=== PATIENT | female | born 1935 | race Caucasian/White ===

== ENCOUNTER 2017-01-11 09:12 | Emergency (ER) | payer OTHER, BC ==
--- NOTE | 2017-01-11 09:45 | EDPHY ---
H & P Time Seen by Provider: 01/11/17 09:21 HPI/ROS: Chief Complaint: Lethargy HPI: 81-year-old woman presenting this morning complaining of feeling "like a rag doll "with increasing lethargy noted this morning. She has had similar episodes in the past and has been diagnosed with urinary tract infections. Denies any urinary urgency or frequency. No fevers or chills. No chest pain or shortness of breath. She has also felt this way when she has been dehydrated in the past but she has been drinking plenty of fluids. No lightheadedness or fainting. Has otherwise been in her usual state of health. Does have a history of dementia and is cared for by her . ROS: 10 point Review of Systems is negative except as noted in the HPI. PMH: Alzheimer's dementia, pacemaker Social History: No smoking, no alcohol, no recreational drug use Family History: non-contributory Physical Exam: Gen: Awake, Alert, No Distress HEENT: Nose: no rhinorrhea Eyes: PERRLA, EOMI Mouth: Moist mucosa Neck: Supple, no JVD Chest: nontender, lungs clear to auscultation Heart: S1, S2 normal, no murmur Abd: Soft, non-tender, no guarding Back: no CVA tenderness, no midline tenderness Ext: no edema, non-tender Skin: no rash Neuro: CN II-XII intact, Sensation grossly intact, Strength 5/5 in bilateral upper and lower extremities - Personal History Tetanus Vaccine Date: unsure - Medical/Surgical History Hx Asthma: No Hx Chronic Respiratory Disease: No Hx Diabetes: No Hx Cardiac Disease: Yes Hx Renal Disease: No Hx Cirrhosis: No Hx Alcoholism: No Hx HIV/AIDS: No Hx Splenectomy or Spleen Trauma: No Other PMH: med hx-AFIB, pacemaker, 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 surg-joe knee replacements,pacemaker,tonsilectomy and appy - Social History Smoking Status: Former smoker Constitutional: Initial Vital Signs Temperature (C) 36.6 C 01/11/17 09:40 Heart Rate 75 01/11/17 09:40 Respiratory Rate 18 01/11/17 09:40 Blood Pressure 122/62 H 01/11/17 09:40 O2 Sat (%) 97 01/11/17 09:40 O2 Delivery Mode Room Air Allergies/Adverse Reactions: No Known Allergies Allergy (Verified 11/01/16 08:08) Home Medications: Medication Instructions Recorded Crestor 11/03/14 Pradaxa 11/03/14 Metoprolol Succinate 12/21/14 Levothyroxine 09/24/15 Namenda 10 mg 10/20/15 Nitrofurantoin Monohyd/M-Cryst 100 mg PO BID #10 capsule 01/11/17 [Macrobid 100 mg Capsule] Medical Decision Making ED Course/Re-evaluation: UA consistent with UTI. Will start the patient on Macrobid. She will follow up with her primary care physician in 4-5 days for recheck. - Data Points Laboratory Results: 01/11/17 10:01 Urine Color YELLOW Urine Appearance CLEAR Urine pH 5.5 (5.0-7.5) Ur Specific [place] 1.010 (1.002-1.030) Urine Protein NEGATIVE (NEGATIVE) Urine Ketones NEGATIVE (NEGATIVE) Urine Blood 2+ H (NEGATIVE) Urine Nitrate NEGATIVE (NEGATIVE) Urine Bilirubin NEGATIVE (NEGATIVE) Urine Urobilinogen 0.2 EU EU (0.2-1.0) Ur Leukocyte Esterase 1+ H (NEGATIVE) Urine RBC 10-15 /hpf H /hpf (0-3) Urine WBC 10-15 /hpf H /hpf (0-3) Ur Epithelial Cells TRACE /lpf /lpf (NONE-1+) Urine Bacteria TRACE /hpf H /hpf (NONE SEEN) Urine Mucus TRACE /lpf /lpf (NONE-1+) Urine Glucose NEGATIVE (NEGATIVE) Departure - Departure Disposition: Home, Routine, Self-Care Clinical Impression: Urinary tract infection Condition: Good Instructions: Urinary Tract Infection in Women (ED) Additional Instructions: Please take your full course of antibiotics. Follow up with her doctor in 4-5 days for recheck. Return to the emergency department for increasing confusion, pain, fevers, chills, or any other concerns. Referrals: Clari Wise MD [Primary Care Provider] - As per Instructions Prescriptions: Nitrofurantoin Monohyd/M-Cryst [Macrobid 100 mg Capsule] 100 mg PO BID #10 capsule
[2017-01-11 10:02] VITALS: RESP 18; TEMP 98
[2017-01-11 10:12] LABS: COLOR YELLOW; LEUKOCYTE ESTERASE,URINE 1+ (NEGATIVE); NITRITE,URINE NEGATIVE (NEGATIVE); PH,URINE 5.5 (5.0-7.5)
[2017-01-11 10:23] LABS: BACTERIA TRACE /hpf (NONE SEEN); MUCUS TRACE /lpf (NONE-1+)
[2017-01-11 10:51] VITALS: O2SAT 96
[2017-01-11 10:52] VITALS: BP 130/63; PULSE 78
== END 2017-01-11 10:52 | disposition home or self-care (01) ==
LOC: CED 09:12
DX: N39.0 Urinary tract infection, site not specified (principal); B96.89 Other specified bacterial agents as the cause of diseases classified elsewhere; G30.9 Alzheimer's disease, unspecified; Z87.891 Personal history of nicotine dependence; Z95.0 Presence of cardiac pacemaker
CPT/HCPCS: 81003-PO; 81015-PO

== ENCOUNTER 2017-01-17 10:28 | Emergency (ER) | payer OTHER, BC ==
[2017-01-17 10:43] VITALS: TEMP 97.9; O2SAT 97
--- NOTE | 2017-01-17 11:02 | EDPHY ---
H & P Stated Complaint: muscles feel weak, finished antibiotic for UTI 2 days ago Time Seen by Provider: 01/17/17 10:36 HPI/ROS: CHIEF COMPLAINT: "Feel like a rag doll " HISTORY OF PRESENT ILLNESS: This is an 81-year-old female with history of dementia who presents with complaints of diffuse weakness which she describes as feeling "like a rag doll ". She was diagnosed with urinary tract infection on January 11, 5 days ago, and completed a course of nitrofurantoin. She had a urinalysis performed at her primary care physician's office 2 days ago which was reportedly normal with the exception of a trace of blood. She has not had fever. She denies flank pain, abdominal pain, dysuria, hematuria, urgency, or frequency. She has not had chest pain or shortness of breath. No recent falls or trauma. REVIEW OF SYSTEMS: A ten point review of systems was performed and is negative with the exception of the items mentioned in the HPI. History review of systems obtained with the help of her , she has dementia. Past medical history: 1. Dementia 2. Atrial fibrillation 3. Pacemaker 4. Hypothyroidism Past surgical history: 1. Pacemaker 2. Bilateral knee replacements Social history: She lives with her at [facility] in independent living. She uses alcohol socially. No tobacco use. 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 General Appearance: Alert. Vital signs reviewed and normal. Eyes: Pupils equal and round, no conjunctival injection, no discharge. Anicteric. ENT, Mouth: Mucous membranes are moist, no oropharyngeal erythema or edema. Torus palatine. Neck: No lymphadenopathy, supple. Respiratory: Lungs are clear to auscultation; no wheezes, rales, or rhonchi. Cardiovascular: Regular rate and rhythm; no murmur, rub, or gallop. Gastrointestinal: Abdomen is soft with very mild suprapubic tenderness, no masses or organomegaly, bowel sounds normal. Skin: Warm and dry, no rashes on exposed skin, normal color. Back: Nontender to palpation over the thoracolumbar spine. No CVAT. Extremities: No lower extremity edema, no calf tenderness or swelling. Neurological: Alert. Moving all four extremities easily and equally. Psychiatric: Normal affect. No agitation. 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 surg-joe knee replacements,pacemaker,tonsilectomy and appy - Social History Smoking Status: Former smoker Constitutional: Initial Vital Signs Temperature (C) 36.6 C 01/17/17 10:41 Heart Rate 67 01/17/17 10:41 Respiratory Rate 18 01/17/17 10:41 Blood Pressure 115/63 01/17/17 10:41 O2 Sat (%) 97 01/17/17 10:41 O2 Delivery Mode Room Air Allergies/Adverse Reactions: No Known Allergies Allergy (Verified 01/17/17 10:41) Home Medications: Medication Instructions Recorded Crestor 11/03/14 Pradaxa 11/03/14 Metoprolol Succinate 12/21/14 Levothyroxine 09/24/15 Namenda 10 mg 10/20/15 Nitrofurantoin Monohyd/M-Cryst 100 mg PO BID #10 capsule 01/11/17 [Macrobid 100 mg Capsule] Cephalexin [Keflex] 500 mg PO BID #10 cap 01/17/17 Medical Decision Making - Diagnostics EKG Interpretation: 12 lead EKG is interpreted in Trace master View by emergency department physician. Paced. ED Course/Re-evaluation: 81-year-old female who was recently completed a course of antibiotics, nitrofurantoin, for urinary tract infection. She presents with diffuse weakness. Reportedly this is how her previous urinary tract infections have started. I do not find evidence of an acute problem on exam. Clean-catch urinalysis is positive for blood and 1+ bacteria. This might represent partially treated urinary tract infection. I discussed this at some length with the patient and her . Following our discussion we have agreed to proceed with further evaluation to eliminate other possible causes for her diffuse weakness. EKG, CBC, chemistries, troponin, and TSH have been ordered. If these are negative/normal she will be treated for UTI with a different antibiotic (Keflex). Urine has been sent for culture. EKG shows a paced rhythm. Troponin is normal. CBC shows slight decrease in hematocrit and thrombocytopenia with platelets of 109,000. She has had low platelet counts in the past, although this is lower than previously documented. Chemistries WNL. TSH pending. I have not found evidence of a life-threatening were serious process that might make her feel diffusely weak. Differential Diagnosis: Weakness including but not limited to myocardial infarction, electrolyte abnormality, endocrine disorder, depression, anxiety, CVA, spinal cord abnormality, and infectious causes. - Data Points Laboratory Results: Laboratory Results 01/17/17 11:45 01/17/17 11:45 01/17/17 01/17/17 01/17/17 11:45 11:45 11:02 WBC 4.48 10^3/uL 10^3/uL (3.80-9.50) RBC 3.56 10^6/uL L 10^6/uL (4.18-5.33) Hgb 12.6 g/dL g/dL (12.6-16.3) Hct 36.5 % L % (38.0-47.0) MCV 102.5 fL H fL (81.5-99.8) MCH 35.4 pg H pg (27.9-34.1) MCHC 34.5 g/dL g/dL (32.4-36.7) RDW 12.5 % % (11.5-15.2) Plt Count 109 10^3/uL L 10^3/uL (150-400) MPV 9.5 fL fL (8.7-11.7) Neut % (Auto) 68.1 % % (39.3-74.2) Lymph % (Auto) 11.8 % L % (15.0-45.0) [place] % (Auto) 11.6 % % (4.5-13.0) Eos % (Auto) 7.4 % % (0.6-7.6) Baso % (Auto) 0.9 % % (0.3-1.7) Nucleat RBC Rel Count 0.0 % % (0.0-0.2) Absolute Neuts (auto) 3.05 10^3/uL 10^3/uL (1.70-6.50) Absolute Lymphs (auto) 0.53 10^3/uL L 10^3/uL (1.00-3.00) Absolute Monos (auto) 0.52 10^3/uL 10^3/uL (0.30-0.80) Absolute Eos (auto) 0.33 10^3/uL 10^3/uL (0.03-0.40) Absolute Basos (auto) 0.04 10^3/uL 10^3/uL (0.02-0.10) Absolute Nucleated RBC 0.00 10^3/uL 10^3/uL (0-0.01) Immature Gran % 0.2 % % (0.0-1.1) Immature Gran # 0.01 10^3/uL 10^3/uL (0.00-0.10) Sodium 136 mEq/L mEq/L (134-144) Potassium 4.1 mEq/L mEq/L (3.5-5.2) Chloride 101 mEq/L mEq/L (97-110) Carbon Dioxide 23 mEq/l mEq/l (22-31) Anion Gap 12 mEq/L mEq/L (8-16) BUN 10 mg/dL mg/dL (7-23) Creatinine 1.0 mg/dL mg/dL (0.6-1.0) Estimated GFR 53 Glucose 102 mg/dL H mg/dL (70-100) Calcium 8.8 mg/dL mg/dL (8.5-10.4) Troponin I < 0.012 ng/mL ng/mL (0.000-0.034) TSH Pending Urine Color YELLOW Urine Appearance CLEAR Urine pH 5.5 (5.0-7.5) Ur Specific [place] <= 1.005 (1.002-1.030) Urine Protein NEGATIVE (NEGATIVE) Urine Ketones NEGATIVE (NEGATIVE) Urine Blood 2+ H (NEGATIVE) Urine Nitrate NEGATIVE (NEGATIVE) Urine Bilirubin NEGATIVE (NEGATIVE) Urine Urobilinogen 0.2 EU EU (0.2-1.0) Ur Leukocyte Esterase NEGATIVE (NEGATIVE) Urine RBC 5-10 /hpf H /hpf (0-3) Urine WBC 0-1 /hpf /hpf (0-3) Ur Epithelial Cells 1+ /lpf /lpf (NONE-1+) Urine Bacteria 1+ /hpf H /hpf (NONE SEEN) Urine Glucose NEGATIVE (NEGATIVE) Departure - Departure Disposition: Home, Routine, Self-Care Clinical Impression: Urinary tract infection Qualifiers: Urinary tract infection type: acute cystitis Hematuria presence: with hematuria Qualified Code(s): N30.01 - Acute cystitis with hematuria Condition: Good Instructions: Urinary Tract Infection in Women (ED) Additional Instructions: I think that there is still some remaining infection of your urine. I am changing you to a different antibiotic. Please follow up with Dr. Wolf within the next 1-2 weeks. If you are worse in any way--fever, back pain, vomiting, abdominal pain, pain with urination--please be re-evaluated. Referrals: Clari Wise MD [Primary Care Provider] - As per Instructions Prescriptions: Cephalexin [Keflex] 500 mg PO BID #10 cap
[2017-01-17 11:08] LABS: COLOR YELLOW; LEUKOCYTE ESTERASE,URINE NEGATIVE (NEGATIVE); NITRITE,URINE NEGATIVE (NEGATIVE); PH,URINE 5.5 (5.0-7.5)
[2017-01-17 11:17] LABS: BACTERIA 1+ /hpf (NONE SEEN); WBC,URINE 0-1 /hpf (0-3)
--- NOTE | 2017-01-17 11:50 | CPEKG ---
Heart Rate: 65 RR Interval: 923 QRSD Interval: 102 QT Interval: 408 QTC Interval: 425 QRS [place]: 50 T Wave [place]: 195 EKG Severity - ABNORMAL ECG - EKG Impression: AFIBAND V-PACED COMPLEXES EKG Impression: NONSPECIFIC REPOL ABNORMALITY, DIFFUSE LEADS Electronically Signed By: Sha Pelletier 21-Jan-2017 16:56:25
[2017-01-17 11:52] LABS: % IMMATURE GRANULYOCYTES 0.2 % (0.0-1.1); ABSOLUTE IMMATURE GRANULOCYTES 0.01 10^3/uL (0.00-0.10); ADD DIFF? NO; ADD MORPH? NO; ADD SCAN? NO; ATYPICAL LYMPHOCYTE FLAG 0 (0-99); FRAGMENT RBC FLAG 0 (0-99); HEMATOCRIT 36.5 % (38.0-47.0); HEMOGLOBIN 12.6 g/dL (12.6-16.3); LEFT SHIFT FLG 0 (0-99); LIPEMIA HEMOLYSIS FLAG 90 (0-99); MEAN CELL HEMOGLOBIN 35.4 pg (27.9-34.1); MEAN CELL HEMOGLOBIN CONCENTR. 34.5 g/dL (32.4-36.7); MEAN CELL VOLUME 102.5 fL (81.5-99.8); MEAN PLATELET VOLUME 9.5 fL (8.7-11.7); PLATELET CLUMPS FLAG 0 (0-99); PLATELET COUNT 109 10^3/uL (150-400); RED BLOOD CELL COUNT 3.56 10^6/uL (4.18-5.33); RED CELL DISTRIBUTION WIDTH 12.5 % (11.5-15.2)
[2017-01-17 12:09] LABS: ANION GAP 12 mEq/L (8-16); CALCIUM 8.8 mg/dL (8.5-10.4); CARBON DIOXIDE 23 mEq/l (22-31); CHLORIDE 101 mEq/L (97-110); GLOMERULAR FILTRATION RATE 53; GLUCOSE 102 mg/dL (70-100); POTASSIUM 4.1 mEq/L (3.5-5.2); SODIUM 136 mEq/L (134-144)
[2017-01-17 12:24] LABS: TROPONIN I < 0.012 ng/mL (0.000-0.034)
[2017-01-17 13:01] VITALS: BP 109/71; PULSE 65; RESP 16
== END 2017-01-17 12:59 | disposition home or self-care (01) ==
LOC: CED 10:28
DX: N30.01 Acute cystitis with hematuria (principal); B96.89 Other specified bacterial agents as the cause of diseases classified elsewhere; Z95.0 Presence of cardiac pacemaker; Z87.891 Personal history of nicotine dependence
CPT/HCPCS: 80048-PO; 81003-PO; 81015-PO; 84443-PO; 84484-PO; 85025-PO

== ENCOUNTER 2017-02-12 07:26 | Emergency (ER) | payer OTHER, BC ==
--- NOTE | 2017-02-12 07:46 | EDPHY ---
H & P Stated Complaint: states some chest tightness with a funny feeling this am Time Seen by Provider: 02/12/17 07:28 HPI/ROS: 81-year-old female with history of dementia presents with her for complaint of he is concerned that she may be dehydrated or have a urinary tract infection because earlier this morning she just did not feel well. No fevers no chills no complaint of pain. Review of systems, limited secondary to patient's mental status with dementia Review of systems General no fever no chills no weakness HEENT no eye pain no eye discharge. No eye redness, no sore throat Respiratory no cough, no shortness of breath Cardiac no chest pain, no peripheral edema GI no abdominal pain, no diarrhea, no constipation, no nausea, no vomiting no flank pain, no hematuria, no dysuria Musculoskeletal no myalgias, no joint pain Heme no easy bruising, no easy bleeding Endo no polyuria, no polydipsia Skin no rashes, no pruritus Neuro no syncope, no dizziness, no headaches Psych is no suicidal ideation, no homicidal ideation Source: Family Exam Limitations: No limitations, Other (Patient with dementia) - Personal History Current Tetanus/Diphtheria Vaccine: Unsure Tetanus Vaccine Date: unsure - Medical/Surgical History Hx Asthma: No Hx Chronic Respiratory Disease: No Hx Diabetes: No Hx Cardiac Disease: Yes Hx Renal Disease: No Hx Cirrhosis: No Hx Alcoholism: No Hx HIV/AIDS: No Hx Splenectomy or Spleen Trauma: No Other PMH: med hx-AFIB, pacemaker, 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 surg-joe knee replacements,pacemaker,tonsilectomy and appy - Family History Significant Family History: No pertinent family hx - Social History Smoking Status: Former smoker Alcohol Use: None Drug Use: None - Physical Exam Exam: 81-year-old female alert, oriented to place, name, no acute distress, no respiratory distress, afebrile Patient does not appear ill thin, petite HEENT atraumatic normocephalic, extraocular muscles intact, anicteric Oropharynx negative for erythema negative exudate, tolerating her own secretions Neck supple no meningismus Lungs clear to auscultation bilaterally Heart regular rate and rhythm without murmur rub or gallop Abdomen nondistended normoactive bowel sounds soft nontender Back no CVA tenderness, no step-offs, no spinal tenderness Extremities no cyanosis clubbing or edema Neuro alert and oriented, no focal deficits Constitutional: Initial Vital Signs Temperature (C) 36.6 C 02/12/17 07:42 Heart Rate 63 02/12/17 07:42 Respiratory Rate 18 02/12/17 07:42 Blood Pressure 121/74 H 02/12/17 07:42 O2 Sat (%) 95 02/12/17 07:42 O2 Delivery Mode Room Air Allergies/Adverse Reactions: No Known Allergies Allergy (Verified 01/17/17 10:41) Home Medications: Medication Instructions Recorded Crestor 11/03/14 Pradaxa 11/03/14 Metoprolol Succinate 12/21/14 Levothyroxine 09/24/15 Namenda 10 mg 10/20/15 Nitrofurantoin Monohyd/M-Cryst 100 mg PO BID #10 capsule 01/11/17 [Macrobid 100 mg Capsule] Cephalexin [Keflex] 500 mg PO BID #10 cap 01/17/17 Cephalexin 500 mg PO BID #10 tablet 02/12/17 Medical Decision Making ED Course/Re-evaluation: Patient seen and evaluated for complaint of "not feeling well ". EKG-no ischemic changes paced Urinalysis-positive RBCs positive WBCs trace bacteria Lab CBC, CMP within normal limits Troponin, TSH within normal limits Patient appears well, was able to eat and drink a small snack. Impression Urinary tract infection Plan Keflex 500 twice daily x7 days Follow-up with PCP Return as needed Differential Diagnosis: Dehydration, urinary tract infection, electrolyte abnormality, hypothyroidism - Data Points Laboratory Results: Laboratory Results 02/12/17 07:58 02/12/17 07:58 02/12/17 02/12/17 02/12/17 07:58 07:58 07:35 WBC 4.39 10^3/uL 10^3/uL (3.80-9.50) RBC 3.59 10^6/uL L 10^6/uL (4.18-5.33) Hgb 12.7 g/dL g/dL (12.6-16.3) Hct 37.0 % L % (38.0-47.0) MCV 103.1 fL H fL (81.5-99.8) MCH 35.4 pg H pg (27.9-34.1) MCHC 34.3 g/dL g/dL (32.4-36.7) RDW 13.1 % % (11.5-15.2) Plt Count 133 10^3/uL L 10^3/uL (150-400) MPV 9.3 fL fL (8.7-11.7) Neut % (Auto) 48.6 % % (39.3-74.2) Lymph % (Auto) 28.2 % % (15.0-45.0) [place] % (Auto) 11.6 % % (4.5-13.0) Eos % (Auto) 10.3 % H % (0.6-7.6) Baso % (Auto) 1.1 % % (0.3-1.7) Nucleat RBC Rel Count 0.0 % % (0.0-0.2) Absolute Neuts (auto) 2.13 10^3/uL 10^3/uL (1.70-6.50) Absolute Lymphs (auto) 1.24 10^3/uL 10^3/uL (1.00-3.00) Absolute Monos (auto) 0.51 10^3/uL 10^3/uL (0.30-0.80) Absolute Eos (auto) 0.45 10^3/uL H 10^3/uL (0.03-0.40) Absolute Basos (auto) 0.05 10^3/uL 10^3/uL (0.02-0.10) Absolute Nucleated RBC 0.00 10^3/uL 10^3/uL (0-0.01) Immature Gran % 0.2 % % (0.0-1.1) Immature Gran # 0.01 10^3/uL 10^3/uL (0.00-0.10) Sodium 140 mEq/L mEq/L (134-144) Potassium 4.4 mEq/L mEq/L (3.5-5.2) Chloride 104 mEq/L mEq/L (97-110) Carbon Dioxide 22 mEq/l mEq/l (22-31) Anion Gap 14 mEq/L mEq/L (8-16) BUN 14 mg/dL mg/dL (7-23) Creatinine 1.1 mg/dL H mg/dL (0.6-1.0) Estimated GFR 47 Glucose 92 mg/dL mg/dL (70-100) Calcium 8.8 mg/dL mg/dL (8.5-10.4) Magnesium 1.9 mg/dL mg/dL (1.6-2.3) Total Bilirubin 1.0 mg/dL mg/dL (0.1-1.4) AST 25 IU/L IU/L (14-46) ALT 27 IU/L IU/L (9-52) Alkaline Phosphatase 48 IU/L IU/L (38-126) Troponin I < 0.012 ng/mL ng/mL (0.000-0.034) Total Protein 6.4 g/dL g/dL (6.3-8.2) Albumin 4.0 g/dL g/dL (3.5-5.0) TSH 3.570 uIU/mL uIU/mL (0.465-4.680) Urine Color YELLOW Urine Appearance CLEAR Urine pH 6.0 (5.0-7.5) Ur Specific [place] 1.010 (1.002-1.030) Urine Protein NEGATIVE (NEGATIVE) Urine Ketones NEGATIVE (NEGATIVE) Urine Blood 2+ H (NEGATIVE) Urine Nitrate NEGATIVE (NEGATIVE) Urine Bilirubin NEGATIVE (NEGATIVE) Urine Urobilinogen 1.0 EU EU (0.2-1.0) Ur Leukocyte Esterase 1+ H (NEGATIVE) Urine RBC 25-50 /hpf H /hpf (0-3) Urine WBC 1-3 /hpf /hpf (0-3) Ur Epithelial Cells 1+ /lpf /lpf (NONE-1+) Ur Renal Epithelial Cell 1+ /hpf H /hpf (NONE SEEN) Urine Bacteria TRACE /hpf H /hpf (NONE SEEN) Hyaline Casts 15-25 /lpf H /lpf (0-1) Urine Mucus TRACE /lpf /lpf (NONE-1+) Urine Glucose NEGATIVE (NEGATIVE) Medications Given: Discontinued Medications Cephalexin (Keflex 500 Mg Prepack#4) 1 btl TAKEHOME EDNOW ONE PRN Reason: Protocol Stop: 02/12/17 08:50 Last Admin: 02/12/17 09:04 Dose: 1 btl Departure - Departure Disposition: Home, Routine, Self-Care Clinical Impression: UTI (urinary tract infection) Condition: Good Instructions: Urinary Tract Infection in Women (ED) Additional Instructions: Follow-up with your primary care physician in the next 5-7 days. Return to emergency for vomiting, high fever, or any other significant concerned. Referrals: Clari Wise MD [Primary Care Provider] - As per Instructions Prescriptions: Cephalexin 500 mg PO BID #10 tablet
[2017-02-12 07:52] LABS: COLOR YELLOW; LEUKOCYTE ESTERASE,URINE 1+ (NEGATIVE); NITRITE,URINE NEGATIVE (NEGATIVE)
[2017-02-12 07:58] VITALS: RESP 18; TEMP 98; O2SAT 95
--- NOTE | 2017-02-12 07:59 | CPEKG ---
Heart Rate: 64 RR Interval: 938 P-R Interval: 148 QRSD Interval: 132 QT Interval: 444 QTC Interval: 458 P [place]: 0 QRS [place]: 42 T Wave [place]: 61 EKG Severity - ABNORMAL ECG - EKG Impression: VENTRICULAR-PACED RHYTHM Electronically Signed By: Sha Pelletier 16-Feb-2017 19:05:28
[2017-02-12 08:00] LABS: HYALINE CASTS 15-25 /lpf (0-1); MUCUS TRACE /lpf (NONE-1+); RENAL EPITHELIAL CELLS 1+ /hpf (NONE SEEN)
[2017-02-12 08:01] LABS: RBC,URINE 25-50 /hpf (0-3)
[2017-02-12 08:02] LABS: BACTERIA TRACE /hpf (NONE SEEN)
[2017-02-12 08:13] LABS: % IMMATURE GRANULYOCYTES 0.2 % (0.0-1.1); ABSOLUTE IMMATURE GRANULOCYTES 0.01 10^3/uL (0.00-0.10); ADD DIFF? NO; ADD MORPH? NO; ADD SCAN? NO; ATYPICAL LYMPHOCYTE FLAG 10 (0-99); FRAGMENT RBC FLAG 0 (0-99); HEMOGLOBIN 12.7 g/dL (12.6-16.3); LEFT SHIFT FLG 0 (0-99); LIPEMIA HEMOLYSIS FLAG 90 (0-99); MEAN CELL HEMOGLOBIN 35.4 pg (27.9-34.1); MEAN CELL HEMOGLOBIN CONCENTR. 34.3 g/dL (32.4-36.7); MEAN CELL VOLUME 103.1 fL (81.5-99.8); MEAN PLATELET VOLUME 9.3 fL (8.7-11.7); PLATELET CLUMPS FLAG 0 (0-99); PLATELET COUNT 133 10^3/uL (150-400); RED BLOOD CELL COUNT 3.59 10^6/uL (4.18-5.33); RED CELL DISTRIBUTION WIDTH 13.1 % (11.5-15.2)
[2017-02-12 08:33] LABS: ALANINE AMINOTRANSFERASE 27 IU/L (9-52); ALKALINE PHOSPHATASE 48 IU/L (38-126); ANION GAP 14 mEq/L (8-16); ASPARTATE AMINOTRANSFERASE 25 IU/L (14-46); CALCIUM 8.8 mg/dL (8.5-10.4); CARBON DIOXIDE 22 mEq/l (22-31); CHLORIDE 104 mEq/L (97-110); CREATININE 1.1 mg/dL (0.6-1.0); GLOMERULAR FILTRATION RATE 47; GLUCOSE 92 mg/dL (70-100); MAGNESIUM 1.9 mg/dL (1.6-2.3); POTASSIUM 4.4 mEq/L (3.5-5.2); SODIUM 140 mEq/L (134-144); TOTAL PROTEIN 6.4 g/dL (6.3-8.2)
[2017-02-12 08:47] LABS: TROPONIN I < 0.012 ng/mL (0.000-0.034)
[2017-02-12] MEDS ORDERED: CEPHALEXIN 500MG PREPACK#4 BTL TAKEHOME ONE (08:49)
[2017-02-12 10:03] VITALS: BP 125/62; PULSE 78
== END 2017-02-12 10:02 | disposition home or self-care (01) ==
LOC: CED 07:26
DX: N39.0 Urinary tract infection, site not specified (principal); B96.89 Other specified bacterial agents as the cause of diseases classified elsewhere; Z87.891 Personal history of nicotine dependence; Z95.0 Presence of cardiac pacemaker
CPT/HCPCS: 80053-PO; 81003-PO; 81015-PO; 83735-PO; 84443-PO; 84484-PO; 85025-PO

== ENCOUNTER 2017-09-21 09:56 | Emergency (ER) | payer OTHER, BC ==
--- NOTE | 2017-09-21 10:14 | CPEKG ---
Heart Rate: 68 RR Interval: 882 QRSD Interval: 84 QT Interval: 416 QTC Interval: 443 QRS [place]: 43 T Wave [place]: -12 EKG Severity - ABNORMAL ECG - EKG Impression: ATRIAL FIBRILLATION EKG Impression: Similar to previous unpaced rhythm Electronically Signed By: Anuj Milner 21-Sep-2017 10:34:28
[2017-09-21] MEDS ORDERED: NS 1,000 ML IV ONE (10:28)
--- NOTE | 2017-09-21 10:32 | EDPHY ---
H & P Time Seen by Provider: 09/21/17 10:20 HPI/ROS: CHIEF COMPLAINT: Spacey HISTORY OF PRESENT ILLNESS: Patient is an 82-year-old female with a history of gradually worsening dementia on Namenda as well as atrial fibrillation on Pradaxa with a pacemaker. She demanded that her bring her to a doctor today because she was feeling spacey. Her states that this happens almost every day. The patient tells me that "it is not serious". She denies having any pain. She denies shortness of breath. She denies any dysuria or urinary symptoms. She denies any GI symptoms. She states that she just "feels spacey". She has trouble describing beyond that what she means. She is not on any new or sedating medications. Her states that usually when this happens they attributed to dehydration and she drinks a couple glasses of water in the time it takes her to drink a couple glasses of water she begins to feel better. She has not had a fever. She has no focal weakness or deficits. REVIEW OF SYSTEMS: Constitutional: denies: chills, fever, recent illness, recent injury EENTM: denies: blurred vision, double vision, nose congestion Respiratory: denies: cough, shortness of breath Cardiac: denies: chest pain, irregular heart rate, lightheadedness, palpitations Gastrointestinal/Abdominal: denies: abdominal pain, diarrhea, nausea, vomiting, blood streaked stools Genitourinary: denies: dysuria, frequency, hematuria, pain Musculoskeletal: denies: joint pain, muscle pain Skin: denies: lesions, rash, jaundice, bruising Neurological: See HPI denies: headache, numbness, paresthesia, tingling, dizziness, weakness Hematologic/Lymphatic: denies: blood clots, easy bleeding, easy bruising Immunologic/allergic: denies: HIV/AIDS, transplant EXAM: GENERAL: Well-appearing, well-nourished and in no acute distress. HEAD: Atraumatic, normocephalic. EYES: Pupils equal round and reactive to light, extraocular movements intact, sclera anicteric, conjunctiva are normal. ENT: TMs normal, nares patent, oropharynx clear without exudates. Moist mucous membranes. NECK: Normal range of motion, supple without lymphadenopathy or JVD. LUNGS: Breath sounds clear to auscultation bilaterally and equal. No wheezes rales or rhonchi. HEART: Regular rate and rhythm without murmurs, rubs or gallops. ABDOMEN: Soft, nontender, normoactive bowel sounds. No guarding, no rebound. No masses appreciated. BACK: No CVA tenderness, no spinal tenderness, step-offs or deformities EXTREMITIES: Normal range of motion, no pitting or edema. No clubbing or cyanosis. NEUROLOGICAL: Cranial nerves II through XII grossly intact. Normal speech, normal gait. 5/5 strength, normal movement in all extremities, normal sensation PSYCH: Normal mood, pleasant affect. SKIN: Warm, dry, normal turgor, no visible rashes or lesions. 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 surg-joe knee replacements,pacemaker,tonsilectomy and appy - Family History Significant Family History: No pertinent family hx - Social History Smoking Status: Former smoker Alcohol Use: Sober Constitutional: Initial Vital Signs Temperature (C) 36.9 C 09/21/17 10:00 Heart Rate 62 09/21/17 10:00 Respiratory Rate 16 09/21/17 10:00 Blood Pressure 130/96 H 09/21/17 10:00 O2 Sat (%) 98 09/21/17 10:00 O2 Delivery Mode Room Air Allergies/Adverse Reactions: No Known Allergies Allergy (Verified 09/21/17 10:12) Home Medications: Medication Instructions Recorded Crestor 11/03/14 Pradaxa 11/03/14 Metoprolol Succinate 12/21/14 Levothyroxine 09/24/15 Namenda 10 mg 10/20/15 Medical Decision Making - Diagnostics EKG Interpretation: An EKG obtained and was read and documented in trace view. Please see trace view for full reading and report. Atrial fibrillation, similar to previous ED Course/Re-evaluation: Patient is well appearing. She has no physical complaints other than feeling "spacey". We discussed options and agreed obtained lab work, EKG in urine samples and hydrate her. and I agree that this is likely natural progressing in her dementia. 12:10 p.m. the patient is eager to leave and does not wish to wait for the rest of her results. She does have a small amount of blood in her urine which appears to be a baseline. She has a history of mild hematuria. She is also slightly anemic which is her baseline. She is slightly hypocalcemic and this seems to fluctuate. We will have her recheck with her primary. She states that she no longer feels spacey and is eager to leave. Her is frustrated with her and thinks that she did not need to come here and that this is simply part of her normal dementia. He asked that I give her instructions stating that she does not need to come to the doctor every time she feels slightly spacey. Differential Diagnosis: Partial list of the Differential diagnosis considered include but were not limited to; dementia, anxiety, urinary tract infection and although unlikely based on the history and physical exam, I also considered electrolyte infection , head injury, stroke, acute coronary disease. I discussed these differential diagnoses and the plan with the patient as well as the usual and expected course. The patient understands that the diagnosis is provisional and that in medicine we are not always correct and that further workup is often warranted. Usual and customary warnings were given. All of the patient's questions were answered. The patient was instructed to return to the emergency department should the symptoms at all worsen or return, otherwise to followup with the physician as we discussed. - Data Points Laboratory Results: Laboratory Results 09/21/17 10:30 09/21/17 10:30 09/21/17 09/21/17 09/21/17 11:45 10:30 10:30 WBC RBC Hgb Hct MCV MCH MCHC RDW Plt Count MPV Neut % (Auto) Lymph % (Auto) Lyman % (Auto) Eos % (Auto) Baso % (Auto) Nucleat RBC Rel Count Absolute Neuts (auto) Absolute Lymphs (auto) Absolute Monos (auto) Absolute Eos (auto) Absolute Basos (auto) Absolute Nucleated RBC Immature Gran % Immature Gran # PT 20.0 SEC H SEC (12.0-15.0) INR 1.74 H (0.83-1.16) APTT 51.9 SEC H SEC (23.0-38.0) Sodium 140 mEq/L mEq/L (135-145) Potassium 3.9 mEq/L mEq/L (3.5-5.2) Chloride 108 mEq/L mEq/L (97-110) Carbon Dioxide 26 mEq/l mEq/l (22-31) Anion Gap 6 mEq/L L mEq/L (8-16) BUN 21 mg/dL mg/dL (7-23) Creatinine 1.0 mg/dL mg/dL (0.6-1.0) Estimated GFR 53 Glucose 86 mg/dL mg/dL (70-100) Calcium 8.4 mg/dL L mg/dL (8.5-10.4) Urine Color YELLOW Urine Appearance HAZY Urine pH 6.5 (5.0-7.5) Ur Specific Steele 1.015 (1.002-1.030) Urine Protein NEGATIVE (NEGATIVE) Urine Ketones NEGATIVE (NEGATIVE) Urine Blood 2+ H (NEGATIVE) Urine Nitrate NEGATIVE (NEGATIVE) Urine Bilirubin NEGATIVE (NEGATIVE) Urine Urobilinogen 0.2 EU EU (0.2-1.0) Ur Leukocyte Esterase NEGATIVE (NEGATIVE) Urine RBC 10-15 /hpf H /hpf (0-3) Urine WBC 0-1 /hpf /hpf (0-3) Ur Epithelial Cells TRACE /lpf /lpf (NONE-1+) Urine Glucose NEGATIVE (NEGATIVE) 09/21/17 10:30 WBC 3.95 10^3/uL 10^3/uL (3.80-9.50) RBC 3.65 10^6/uL L 10^6/uL (4.18-5.33) Hgb 13.1 g/dL g/dL (12.6-16.3) Hct 37.9 % L % (38.0-47.0) MCV 103.8 fL H fL (81.5-99.8) MCH 35.9 pg H pg (27.9-34.1) MCHC 34.6 g/dL g/dL (32.4-36.7) RDW 12.9 % % (11.5-15.2) Plt Count 128 10^3/uL L 10^3/uL (150-400) MPV 9.7 fL fL (8.7-11.7) Neut % (Auto) 58.7 % % (39.3-74.2) Lymph % (Auto) 22.5 % % (15.0-45.0) Lyman % (Auto) 11.9 % % (4.5-13.0) Eos % (Auto) 5.3 % % (0.6-7.6) Baso % (Auto) 1.3 % % (0.3-1.7) Nucleat RBC Rel Count 0.0 % % (0.0-0.2) Absolute Neuts (auto) 2.32 10^3/uL 10^3/uL (1.70-6.50) Absolute Lymphs (auto) 0.89 10^3/uL L 10^3/uL (1.00-3.00) Absolute Monos (auto) 0.47 10^3/uL 10^3/uL (0.30-0.80) Absolute Eos (auto) 0.21 10^3/uL 10^3/uL (0.03-0.40) Absolute Basos (auto) 0.05 10^3/uL 10^3/uL (0.02-0.10) Absolute Nucleated RBC 0.00 10^3/uL 10^3/uL (0-0.01) Immature Gran % 0.3 % % (0.0-1.1) Immature Gran # 0.01 10^3/uL 10^3/uL (0.00-0.10) PT INR APTT Sodium Potassium Chloride Carbon Dioxide Anion Gap BUN Creatinine Estimated GFR Glucose Calcium Urine Color Urine Appearance Urine pH Ur Specific Steele Urine Protein Urine Ketones Urine Blood Urine Nitrate Urine Bilirubin Urine Urobilinogen Ur Leukocyte Esterase Urine RBC Urine WBC Ur Epithelial Cells Urine Glucose Medications Given: Discontinued Medications Sodium Chloride (Ns) 1,000 mls @ 0 mls/hr IV ONCE ONE; Wide Open PRN Reason: Protocol Stop: 09/21/17 10:29 Last Admin: 09/21/17 10:58 Dose: 1,000 mls Departure - Departure Disposition: Home, Routine, Self-Care Clinical Impression: Light-headed feeling Condition: Fair Instructions: Lightheadedness (ED) Additional Instructions: If you have similar symptoms in the future of feeling "spacey" make sure your are well-hydrated. Drink a glass or 2 of water. Rest for an hour or 2. Make sure that she did not have a fever and that her blood pressure is normal , and urination is normal and she is not experiencing any pain. If your symptoms have not resolved after taking the steps then call your physician. Contact Dr Wise office in regards to furur care at home. Referrals: Clari Wise MD [Primary Care Provider] - As per Instructions
[2017-09-21 10:54] LABS: PLATELET COUNT 128 10^3/uL (150-400)
[2017-09-21 11:52] LABS: INR 1.74 (0.83-1.16)
[2017-09-21 13:07] VITALS: BP 110/62
== END 2017-09-21 13:05 | disposition home or self-care (01) ==
LOC: CED 09:56
DX: R42 Dizziness and giddiness (principal); E86.9 Volume depletion, unspecified; Z87.891 Personal history of nicotine dependence; Z95.0 Presence of cardiac pacemaker
CPT/HCPCS: 80048-PO; 81003-PO; 81015-PO; 85025-PO; 85610-PO; 85730-PO

== ENCOUNTER 2017-10-10 08:14 | Emergency (ER) | payer OTHER, BC ==
[2017-10-10 08:23] VITALS: BP 119/77
--- NOTE | 2017-10-10 08:39 | EDPHY ---
H & P Stated Complaint: upset stomach Time Seen by Provider: 10/10/17 08:17 HPI/ROS: 82 yo F presents with her for episode this morning of possible abdominal pain or indigestion , now resolved. Pt has dementia and does not recall the episode at all. She currently has no complaints. No vomiting or diarrhea, no fever or chills. ros as per hpi General no fevers no chills no fatigue HEENT-no red eye no eye discharge, no cold symptoms, no sore throat Pulmonary-no cough no shortness of breath GI-no abdominal pain, no vomiting no diarrhea Cardiac-no cyanosis, no fainting -no dysuria, no flank pain Musculoskeletal-no myalgias, no joint pain Skin-no rashes, no itching Neuro-no seizure, no syncope Source: Patient Exam Limitations: No limitations - Personal History Tetanus Vaccine Date: unsure - Medical/Surgical History Hx Asthma: No Hx Chronic Respiratory Disease: No Hx Diabetes: No Hx Cardiac Disease: Yes Hx Renal Disease: No Hx Cirrhosis: No Hx Alcoholism: No Hx HIV/AIDS: No Hx Splenectomy or Spleen Trauma: No Other PMH: med hx-AFIB, pacemaker, 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 surg-joe knee replacements,pacemaker,tonsilectomy and appy - Family History Significant Family History: No pertinent family hx - Social History Smoking Status: Former smoker Alcohol Use: None Drug Use: None - Physical Exam Exam: 82-year-old female Thin elderly female in no acute distress nontoxic appearance afebrile Vital signs stable Atraumatic normocephalic Neck supple Lungs clear to auscultation Heart regular rate and rhythm Abdomen nondistended bowel sounds present Extremities no cyanosis clubbing or edema Constitutional: Initial Vital Signs Temperature (C) 36.7 C 10/10/17 08:20 Heart Rate 61 10/10/17 08:20 Respiratory Rate 16 10/10/17 08:20 Blood Pressure 119/77 10/10/17 08:20 O2 Sat (%) 97 10/10/17 08:20 O2 Delivery Mode Room Air Allergies/Adverse Reactions: No Known Allergies Allergy (Verified 09/21/17 10:12) Home Medications: Medication Instructions Recorded Crestor 11/03/14 Pradaxa 11/03/14 Metoprolol Succinate 12/21/14 Levothyroxine 09/24/15 Namenda 10 mg 10/20/15 Probiotic 10/10/17 Medical Decision Making ED Course/Re-evaluation: Pt seen evaluated for possible abdominal pain or indigestion this morning that has now resolved. Vital signs are stable, patient is without complaints Physical exam benign Patient is tolerating p.o.. After a long discussion with the and given the patient currently has no complaints, we have decided to not pursue a workup at this time that this is likely an outcome of the patient's dementia that has been worsening over the last several months. Impression Dementia Plan Discharge home Follow-up PCP next week Return or call as needed. Differential Diagnosis: Differential diagnosis considered but not limited to: Dementia, CVA, TIA, electrolyte abnormality, urinary tract infection Departure - Departure Disposition: Home, Routine, Self-Care Clinical Impression: Dementia Condition: Good Instructions: Dementia (ED) Additional Instructions: see your primary care next week to discuss expectations with worsening dementia and to see if there are resources for help Referrals: Clari Wise MD [Primary Care Provider] - As per Instructions
== END 2017-10-10 09:10 | disposition home or self-care (01) ==
LOC: CED 08:14
DX: F03.90 Unspecified dementia, unspecified severity, without behavioral disturbance, psychotic disturbance, mood disturbance, and anxiety (principal); Z87.891 Personal history of nicotine dependence; Z95.0 Presence of cardiac pacemaker

== ENCOUNTER → 2017-12-07 | Outpatient (CLI) | payer OTHER, BC | LOC: BMCIMAGING 12:21 | PROVIDERS: ATTEND Internal Medicine | DX: M25.512 Pain in left shoulder (principal) ==

== ENCOUNTER 2018-02-27 04:51 | Emergency (ER) | payer OTHER, BC ==
[2018-02-27 05:00] VITALS: BP 111/68
--- NOTE | 2018-02-27 05:21 | EDPHY ---
H & P Stated Complaint: Continued nose bleed. Time Seen by Provider: 02/27/18 05:05 HPI/ROS: 82 yo F presents c/o left nares with slight blood and concern that the nasal packing might fall out when she turns over. Review of systems-as per HPI General no fever no chills no weakness HEENT no eye pain no eye discharge. No eye redness, no sore throat Respiratory no cough, no shortness of breath Cardiac no chest pain, no peripheral edema GI no abdominal pain, no diarrhea, no constipation, no nausea, no vomiting no flank pain, no hematuria, no dysuria Musculoskeletal no myalgias, no joint pain Heme pos easy bruising, pos easy bleeding Endo no polyuria, no polydipsia Skin no rashes, no pruritus Neuro no syncope, no dizziness, no headaches pt with history of dementia Source: Patient, Family Exam Limitations: Clinical condition - Personal History Current Tetanus/Diphtheria Vaccine: Unsure Current Tetanus Diphtheria and Acellular Pertussis (TDAP): Unsure Tetanus Vaccine Date: unsure - Medical/Surgical History Hx Asthma: No Hx Chronic Respiratory Disease: No Hx Diabetes: No Hx Cardiac Disease: Yes Hx Renal Disease: No Hx Cirrhosis: No Hx Alcoholism: No Hx HIV/AIDS: No Hx Splenectomy or Spleen Trauma: No Other PMH: med hx-AFIB, pacemaker Shutz, 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 surg- joe knee replacements,pacemaker,tonsilectomy and appy - Family History Significant Family History: No pertinent family hx - Social History Smoking Status: Former smoker Alcohol Use: None Drug Use: None - Physical Exam Exam: 82 yo F alert, awake in no distress, afebrile at,nc right nares with anterior nasal packing, balloon slightly inflated left nares no blood pharynx no blood lungs cta bilat heart rrr ext no cce Constitutional: Initial Vital Signs Temperature (C) 36.5 C 02/27/18 04:58 Heart Rate 67 02/27/18 04:58 Respiratory Rate 18 02/27/18 04:58 Blood Pressure 111/68 02/27/18 04:58 O2 Sat (%) 96 02/27/18 04:58 O2 Delivery Mode Room Air Allergies/Adverse Reactions: No Known Allergies Allergy (Verified 02/27/18 04:57) Home Medications: Medication Instructions Recorded Crestor 11/03/14 Pradaxa 11/03/14 Metoprolol Succinate 12/21/14 Levothyroxine 09/24/15 Namenda 10 mg 10/20/15 Probiotic 10/10/17 Medical Decision Making ED Course/Re-evaluation: pt seen at outside hospital approx 4 hours ago, for nasal packing to right nares , returns here for check of nasal packing packing is intact, no heavy bleeding, no blood in pharynx will adjust tape to face to make it more secure pt with no other signs of bleeding, no bruising, no gum bleeding Imp s/p right nares epistaxis in pt on pradaxa fear of nasal packing, fear of bleeding Plan Reassurance Hold pradaxa for the weekend f/u pcp or ent on Thursday for packing removal and evaluation of nose. Return as needed. Differential Diagnosis: Differential diagnosis considered but not limited to: Irritation from nasal packing, nose bleed, coagulopathy Departure - Departure Disposition: Home, Routine, Self-Care Clinical Impression: Anterior epistaxis Condition: Good Instructions: Nosebleed (ED) Additional Instructions: Keep packing for 48 hours. Follow up with either your primary care doctor or the ENT doctor for removal of the packing and to recheck the nose. Return to Emergency if heavy bleeding. Referrals: Minh Light MD [Medical Doctor] - As per Instructions
== END 2018-02-27 06:00 | disposition home or self-care (01) ==
LOC: CED 04:51
DX: R04.0 Epistaxis (principal); I48.91 Unspecified atrial fibrillation; Z95.0 Presence of cardiac pacemaker; F03.90 Unspecified dementia, unspecified severity, without behavioral disturbance, psychotic disturbance, mood disturbance, and anxiety

== ENCOUNTER 2018-04-17 13:15 | Emergency (ER) | payer OTHER, BC ==
--- NOTE | 2018-04-17 14:16 | EDPHY ---
H & P Stated Complaint: Abdominal pain, Time Seen by Provider: 04/17/18 13:26 HPI/ROS: CHIEF COMPLAINT: Possible abdominal pain HISTORY OF PRESENT ILLNESS: This is an 82-year-old female, well known to the [facility] Emergency Department staff, who presents with her with a history of abdominal or chest pain today. Patient has underlying dementia and is unable to provide much in the way of a history to me. Her states that she was sleeping this morning, as is her norm, and he woke her up for lunch. At that point she said she was having pain from her head to the middle of her stomach, she was feeling terrible, she wanted to , he should "throw her away", and she was quite depressed. She did not want to drink any of her ensure. No fevers. No belching. No vomiting. He reports her appetite his very significantly diminished over the last several months. Patient reported having "pain all over" and just not feeling well. called a nurse advice line who referred her to the emergency department. He gave her an oral, chewable, anti acid tablet and by the time she made it to the emergency department she reports she is feeling fine. reports no fevers or chills. No obvious shortness of breath. No cough. No vomiting or diarrhea. He denies any urinary complaints or lightheadedness or fainting. REVIEW OF SYSTEMS: Unable to obtain from the patient secondary to her dementia. When I ask her how she is feeling she says "perfectly normal". PAST MEDICAL HISTORY: Atrial fibrillation, pacemaker placement. Currently on Pradaxa. Hypothyroidism, hypertension. Dementia. SOCIAL HISTORY: Here with her . They live in independent living. VITAL SIGNS Reviewed by me. GENERAL: Very thin, elderly female. Pleasant. Unable to contribute much to the history. Refers to her to help answer questions. No respiratory distress. HEENT: Atraumatic. Eyes: No icterus, no injection. Mouth: moist mucous membranes. No erythema or lesions. Neck: supple with no adenopathy. LUNGS: Clear to auscultation bilaterally, no wheezes, rhonchi or rales. CARDIAC: Regular rate and rhythm, diastolic murmur. ABDOMEN: Very thin, soft, nontender. No distension. BACK: No CVA tenderness. EXTREMITIES: No trauma. No edema. Range of motion is normal throughout. NEURO: Alert , oriented to person. Grossly nonfocal. SKIN: Warm and dry, no rash. PSYCHIATRIC: Normal mentation, no agitation. 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 surg- joe knee replacements,pacemaker,tonsilectomy and appy - Social History Smoking Status: Former smoker Constitutional: Initial Vital Signs Temperature (C) 36.9 C 04/17/18 13:28 Heart Rate 65 04/17/18 13:28 Respiratory Rate 16 04/17/18 13:28 Blood Pressure 114/64 04/17/18 13:28 O2 Sat (%) 96 04/17/18 13:28 O2 Delivery Mode Room Air Allergies/Adverse Reactions: No Known Allergies Allergy (Verified 04/17/18 13:30) Home Medications: Medication Instructions Recorded Crestor 11/03/14 Pradaxa 11/03/14 Metoprolol Succinate 12/21/14 Levothyroxine 09/24/15 Namenda 10 mg 10/20/15 Probiotic 10/10/17 Gaviscon Es Tablet Chew 04/17/18 Medical Decision Making - Diagnostics EKG Interpretation: 12-LEAD EKG: Please see the full report in Trace Master. My interpretation: Ventricularly paced complexes. No acute ischemic changes ED Course/Re-evaluation: 82-year-old female with significant dementia presents emergency department with an episode of pain at home today. Her symptoms have resolved by the time she was admitted. Vital signs are stable. EKG demonstrates paced rhythm. Labs including CBC, chemistries, troponin were ordered. I held a long discussion with the regarding the patient's dementia. We discussed resources available for him in the area. Patient's screening laboratory evaluation including CBC, chemistries, troponin were normal. She remains comfortable while here in the emergency department. Patient will be discharged with her . Differential Diagnosis: Differential diagnoses for the patient's symptom complex was considered including but not limited to electrolyte abnormalities, cardiac ischemia, reflux , gastritis. - Data Points Laboratory Results: 04/17/18 04/17/18 14:52 14:51 POC Sodium 147 mEq/L H mEq/L (135-145) POC Potassium 3.4 mEq/L mEq/L (3.3-5.0) POC Chloride 105.0 mEq/L mEq/L (97-110) POC Total CO2 25 mEq/L mEq/L (22-31) POC BUN 24 mg/dL H mg/dL (7-23) POC Creatinine 1.2 mg/dL H mg/dL (0.6-1.0) POC Glucose 96 mg/dL mg/dL (70-100) POC Calcium 9.2 mg/dL mg/dL (8.5-10.4) POC Troponin I 0.00 ng/mL ng/mL (0.00-0.08) Point of Care Test Results: CBC CBC Collection Date 04/17/18 CBC Collection Time 14:49 WBC 5.4 RBC 3.53 HGB 12.3 HCT 36.1 PLT 134 Neut # 3.9 Neut 72.7 LYMPH # 0.8 LYMPH 14.3 Other WBC # 0.7 Other WBC 13.0 MCV 102.3 Chemistry 04/17/18 04/17/18 14:52 14:51 POC Sodium 147 mEq/L H mEq/L (135-145) POC Potassium 3.4 mEq/L mEq/L (3.3-5.0) POC Chloride 105.0 mEq/L mEq/L (97-110) POC Total CO2 25 mEq/L mEq/L (22-31) POC BUN 24 mg/dL H mg/dL (7-23) POC Creatinine 1.2 mg/dL H mg/dL (0.6-1.0) POC Glucose 96 mg/dL mg/dL (70-100) POC Calcium 9.2 mg/dL mg/dL (8.5-10.4) POC Troponin I 0.00 ng/mL ng/mL (0.00-0.08) Departure - Departure Disposition: Home, Routine, Self-Care Clinical Impression: History of complaints of pain, Anorexia Dementia Qualifiers: Dementia type: unspecified type Dementia behavioral disturbance: without behavioral disturbance Qualified Code(s): F03.90 - Unspecified dementia without behavioral disturbance Condition: Fair Instructions: Anorexia Nervosa (ED) Additional Instructions: Please follow up with Dr. Wise or 1 of her colleagues as soon as possible. Please drink plenty of fluid and eat a well-balanced diet. Consider taking omeprazole each evening for the next 2 weeks to see if this helps with appetite. Referrals: Clari Wise MD [Primary Care Provider] - As per Instructions
[2018-04-17 16:07] VITALS: BP 113/68
--- NOTE | 2018-04-18 21:11 | CPEKG ---
Test Reason : OPEN Blood Pressure : / mmHG Vent. Rate : 064 BPM Atrial Rate : 000 BPM P-R Int : 175 ms QRS Dur : 090 ms QT Int : 440 ms P-R-T Axes : 084 062 -54 degrees QTc Int : 454 ms Ventricular-paced complexes Confirmed by Ayleen Ly ([id number]) on 04/18/2018 9:11:23 PM Referred By: Confirmed By:Ayleen Ly
== END 2018-04-17 15:45 | disposition home or self-care (01) ==
LOC: CED 13:15
DX: R10.9 Unspecified abdominal pain (principal); R07.9 Chest pain, unspecified; R63.0 Anorexia; F03.90 Unspecified dementia, unspecified severity, without behavioral disturbance, psychotic disturbance, mood disturbance, and anxiety
CPT/HCPCS: 80048-PO; 84484-PO